=== PATIENT | male | born 1990 | race Caucasian/White ===

== ENCOUNTER 2018-12-25 17:46 | Emergency (ER) | payer MEDICAID, OTHER ==
[~2018-12-25] VITALS: Ht 185.4 cm; Wt 125.0 kg
[2018-12-25 17:52] VITALS: Ht 185.4 cm; Wt 125.0 kg
[2018-12-25] MEDS ORDERED: KETOROLAC 30 MG INJ IM STA (18:49)
[2018-12-25] MEDS ORDERED: DEXAMETHASONE 10 MG/ML 1 ML INJ IM ONE (19:00)
--- NOTE | 2018-12-25 20:40 | ERD ---
ER Documentation Chief Complaint Chief Complaint SORE THROAT WITH SWOLLEN GLANDS HPI Patient is a 28-year-old male with no past medical history presents the ER for concerns of throat pain times 8 days. Patient states initially he felt that his bilateral tonsillar swelling however his right tonsil has remained swollen and his left tonsil has improved. Patient denies any fevers or chills. Patient denies any nausea or vomiting. Patient denies any drooling, trismus or hyperextension of his neck. Patient does report some voice hoarseness. Patient denies any cough, abdominal pain, diarrhea. Patient denies any neck pain or neck stiffness. No recent travel. ROS All systems reviewed and are negative except as per history of present illness. Medications Home Meds Active Scripts Ibuprofen* (Motrin*) 600 Mg Tab, 600 MG PO Q6, #30 TAB Prov:ROBERT VIDES PA-C 12/25/18 Acetaminophen* (Tylophen*) 500 Mg Capsule, 1 CAP PO Q6H PRN for PAIN AND OR ELEVATED TEMP, #20 CAP Prov:ROBERT VIDES PA-C 12/25/18 Allergies Allergies: Coded Allergies: No Known Allergy (Unverified , 12/25/18) PMhx/Soc Medical and Surgical Hx: pt denies Medical Hx, pt denies Surgical Hx Hx Alcohol Use: Yes (OCCASIONAL) Hx Substance Use: Yes (MARIJUANA) Hx Tobacco Use: No Smoking Status: Former smoker FmHx Family History: No diabetes, No coronary disease, No other Physical Exam Vitals Vital Signs Date Temp Pulse Resp B/P (MAP) Pulse Ox O2 O2 Flow FiO2 Time Delivery Rate 12/25/18 98.4 86 20 140/93 97 Room Air 20:56 (109) 12/25/18 100.1 115 17 144/97 95 17:52 (113) Physical Exam GENERAL: Well-developed, well-nourished male. Appears in no acute distress. Sp eaking in full sentences. HEAD: Normocephalic, atraumatic. No deformities or ecchymosis. EYE: Pupils equal, round, and reactive to light. EOMs intact. No conjunctival erythema. No eye discharge. ENT: External ear without any masses or tenderness. TM visualized bilaterally, non-erythematous, non-bulging. Nasal mucosa pink with no discharge. Oropharynx is erythematous with 2+ tonsillar enlargement bilaterally. No exudates. Swelling is localized to tonsils, no soft palate swelling. Uvula us swollen, however is noted to be midline. No drooling. No trismus. Patient able to tolerate secretions without difficulty. Patient able to drink fluids without difficulty. NECK: Supple. No meningismus. Normal ROM of the neck. Positive right cervical lymphadenopathy noted. LUNG: Clear to auscultation bilaterally. No rhonchi, wheezing, rales or coarse breath sounds. No stridor. HEART: Tachycardic. No murmurs, rubs or gallops. ABDOMEN: Soft, non distended, non tender to palpation. No rebound or guarding. No McBurneys point tenderness EXTREMITIES: Equal pulses bilaterally. No peripheral clubbing, cyanosis or edema. No unilateral leg swelling. NEUROLOGIC: Alert and oriented to person, place and time. Moving all four extremities. 5/5 strength in all extremities. Normal speech. Steady gait. SKIN: Normal color. Warm and dry. No rashes or lesions. Results 24 hrs Laboratory Tests Test 12/25/18 19:36 Monoscreen Positive Current Medications Medications Dose Sig/Filemon Start Time Status Last (Trade) Ordered Route PRN Stop Time Admin Dose Reason Admin 10 mg ONCE ONCE 12/25/18 DC 12/25/18 Dexamethasone IM 19:00 12/25/18 19:01 (Decadron) 19:01 Ketorolac 30 mg ONCE STAT 12/25/18 DC 12/25/18 Tromethamine IM 18:49 12/25/18 19:01 (Toradol) 18:51 Procedures/MDM MEDICAL DECISION MAKING: This is a 28-year-old male who presents to the ER for concerns of throat pain times 8 days. Patient denied any fevers at home. Vital signs were reviewed. Patient was noted to have a low-grade temperature of 100.2 Fahrenheit at initial presentation. Patient was not hypoxic. On exam, patient had 2+ tonsillar swelling as well as swelling to the uvula. Patient was able to swallow fluids without any difficulty. Patient had no drooling, trismus or hyperextension of his neck. Given tonsillar size and uvula enlargement, I discussed case with my supervising physician Dr. Degroot. Dr. Degroot examined the patient and agreed that findings were less likely to resemble peritonsillar abscess and patient likely had bilateral tonsillar swelling and uvula swelling. Patient was given Toradol 30 mg IM and Decadron 10 mg IM. Rapid strep was noted to be negative. Monospot was noted to be positive. At time of examination, patient did report improvement in symptoms. Patient stated he was able to drink an entire water bottle without difficulty. Patient felt as if his tonsillar swelling was improving. Patient was encouraged to follow-up with ENT specialist in the next 1-2 days for reevaluation of symptoms. Referral information was provided. At this time, patient's presentation is most consistent with mononucleosis. Low suspicion for splenic rupture, epiglottitis, peritonsillar abscess, retropharyngeal abscess, [place]son angina, strep pharyngitis, dental abscess, meningitis or sepsis. Patient was nontoxic, [id number] prior to discharge. Patient was advised to avoid contact sports/ exertional activities for the next 6 weeks. PRESCRIPTIONS: Ibuprofen, Tylenol DISCHARGE: At this time, patient is stable for discharge and outpatient management. Supportive therapies such as OTC throat lozenges and warm salt water gurgles were discussed. I have instructed the patient to follow-up with his/her primary care physician in 1-2 days. I have discussed with the patient the possibility of needing to see a specialist for further workup and imaging studies if symptoms persist. I have instructed the patient to promptly return to the ER for any new or worsening symptoms including increased pain, fever, nausea, vomiting, weakness or LOC. The patient and/or family expressed understanding of and agreement with this plan. All questions were answered. Home care instructions were provided. Disclaimer: Inadvertent spelling and grammatical errors are likely due to EHR/dictation software use and do not reflect on the overall quality of patient care. Also, please note that the electronic time recorded on this note does not necessarily reflect the actual time of the patient encounter. Departure Diagnosis: Primary Impression: Mononucleosis Infectious mononucleosis etiology: unspecified organism Infectious mononucleosis complication: without complication Qualified Codes: B27.90 - Infectious mononucleosis, unspecified without complication Condition: Stable Patient Instructions: Mononucleosis Referrals: KARMEN PARIS MD, VISHAL MD COHEN,GILMA GOLDSMITH,XENIA ARNETT MD, M.D., ALI R MD PATEL,NAIMA YUEN,[facility] YOU HAVE RECEIVED A MEDICAL SCREENING EXAM AND THE RESULTS INDICATE THAT YOU DO NOT HAVE A CONDITION THAT REQUIRES URGENT TREATMENT IN THE EMERGENCY DEPARTMENT. FURTHER EVALUATION AND TREATMENT OF YOUR CONDITION CAN WAIT UNTIL YOU ARE SEEN IN YOUR DOCTORS OFFICE WITHIN THE NEXT 1-2 DAYS. IT IS YOUR RESPONSIBILITY TO MAKE AN APPOINTMENT FOR FOLOW-UP CARE. IF YOU HAVE A PRIMARY DOCTOR --you should call your primary doctor and schedule an appointment IF YOU DO NOT HAVE A PRIMARY DOCTOR YOU CAN CALL OUR PHYSICIAN REFERRAL HOTLINE AT IF YOU CAN NOT AFFORD TO SEE A PHYSICIAN YOU CAN CHOSE FROM THE FOLLOWING [facility] [address] [facility]. [facility] [address] [facility]. [facility] [address] [facility] [facility] [address] [facility] [facility] [address] [facility]. [facility] [address] [facility]. [facility] YOU HAVE RECEIVED A MEDICAL SCREENING EXAM AND THE RESULTS INDICATE THAT YOU DO NOT HAVE A CONDITION THAT REQUIRES URGENT TREATMENT IN THE EMERGENCY DEPARTMENT. FURTHER EVALUATION AND TREATMENT OF YOUR CONDITION CAN WAIT UNTIL YOU ARE SEEN IN YOUR DOCTORS OFFICE WITHIN THE NEXT 1-2 DAYS. IT IS YOUR RESPONSIBILITY TO MAKE AN APPOINTMENT FOR FOLOW-UP CARE. IF YOU HAVE A PRIMARY DOCTOR --you should call your primary doctor and schedule and appointment IF YOU DO NOT HAVE A PRIMARY DOCTOR YOU CAN CALL OUR PHYSICIAN REFERRAL HOTLINE AT . IF YOU CAN NOT AFFORD TO SEE A PHYSICIAN YOU CAN CHOSE FROM THE FOLLOWING [facility]: [facility] [address] [place] [address] [facility] [address] [place] [address] [facility] + [facility] [address] [place] [address] Additional Instructions: Follow-up with ENT specialist in the next 1-2 days. See referral information. No contact sports x 6 weeks. Call your primary care doctor TOMORROW for an appointment during the next 1-2 days.See the doctor sooner or return here if your condition worsens before your appointment time. ROBERT VIDES PA-C Dec 25, 2018 20:40
[2018-12-25] MEDS ORDERED: ACET500C5 PO (20:49)
[2018-12-25] MEDS ORDERED: IBUP-1542 PO (20:49)
[2018-12-25 20:56] VITALS: BP 140/93; PULSE 86; RESP 20
== END 2018-12-25 21:00 | disposition home or self-care (01) ==
LOC: FTE 17:46 → EDBD 17:46 → FTE 21:00
DX: B27.90 Infectious mononucleosis, unspecified without complication (principal); Z87.891 Personal history of nicotine dependence
CPT/HCPCS: 86308; 87880; 96372; J1100; J1885; Z7502